=== PATIENT | male | born 1945 | race Caucasian/White ===

== ENCOUNTER 2017-11-22 19:03 | Emergency (ER) | payer SELFPAY | END 2017-11-22 23:45 | disposition left against medical advice (07) | LOC: E/R 19:03 | DX: Z53.21 Procedure and treatment not carried out due to patient leaving prior to being seen by health care provider (principal) ==

== ENCOUNTER 2017-11-23 07:55 | Inpatient (IN) | payer OTHER ==
[2017-11-23] MEDS: SODIUM CHLORIDE 0.9% 1L BAG IV* (08:32)
[2017-11-23 08:38] LABS: ADD MAN DIFF? NO
[2017-11-23 08:44] LABS: ADD UMIC YES; UR ASCORBIC ACID NEGATIVE (NEGATIVE); UR BILIRUBIN (Dip) NEGATIVE (NEGATIVE); UR BLOOD (Dip) NEGATIVE (NEGATIVE); UR CLARITY CLEAR (CLEAR); UR COLOR STRAW (YELLOW); UR GLUCOSE (Dip) NEGATIVE (NEGATIVE); UR KETONES (Dip) NEGATIVE (NEGATIVE); UR LEUKOCYTE ESTERASE (Dip) NEGATIVE Leu/ul (NEGATIVE); UR NITRITE (Dip) NEGATIVE (NEGATIVE); UR RBC 3 /HPF (0-5); UR SPECIFIC GRAVITY (Dip) 1.009 (1.003-1.030); UR TOTAL PROTEIN (Dip) 1+ mg/dl (NEGATIVE); UR UROBILINOGEN (Dip) 1+ mg/dL (NEGATIVE); UR WBC 0 /HPF (0-5)
[2017-11-23] MEDS: CEFTRIAXONE 1 GM/50 ML (PMX) 50 ML IVPB (08:46)
[2017-11-23] MEDS: IBUPROFEN 600 MG TAB PO (08:47)
[2017-11-23 08:49] LABS: WHITE BLOOD COUNT 1.7 10^3/ul (4.8-10.8)
[2017-11-23 08:49] LABS: ABNORMAL IP MESSAGE 1; HEMOGLOBIN 17.2 g/dl (14.0-18.0); LYMPHOCYTES # 0.2 10^3/ul (0.8-2.9); LYMPHOCYTES % 13.8 % (15.0-51.0); MEAN CORPUSCULAR HEMOGLOBIN 29.9 pg (29.0-33.0); MEAN CORPUSCULAR HGB CONC 33.1 g/dl (32.0-37.0); MEAN CORPUSCULAR VOLUME 90.4 fl (82.0-101.0); MEAN PLATELET VOLUME 10.1 fl (7.4-10.4); MONOCYTE # 0.2 10^3/ul (0.3-0.9); MONOCYTES % 10.2 % (0.0-11.0); NEUTROPHIL # 1.3 10^3/ul (1.6-7.5); NEUTROPHILS % 75.4 % (39.0-77.0); PLATELET COUNT 55 10^3/UL (140-415); POSITIVE DIFF @See below; RED BLOOD COUNT 5.75 10^6/ul (4.70-6.10); RED CELL DISTRIBUTION WIDTH 13.5 % (11.5-14.5)
[2017-11-23 09:05] LABS: ALANINE AMINOTRANSFERASE 65 IU/L (13-69); ALBUMIN 3.9 g/dl (3.3-4.9); ALBUMIN/GLOBULIN RATIO 1.11; ALKALINE PHOSPHATASE 105 IU/L (42-121); ANION GAP 13 (8-16); ASPARTATE AMINO TRANSFERASE 83 IU/L (15-46); BILIRUBIN,INDIRECT 0.4 mg/dl (0-1.1); BILIRUBIN,TOTAL 0.4 mg/dl (0.2-1.3); BLOOD UREA NITROGEN 23 mg/dl (7-20); CALCIUM 9.2 mg/dl (8.4-10.2); CARBON DIOXIDE 27 mmol/L (21-31); CHLORIDE 104 mmol/L (97-110); CREATININE 1.73 mg/dl (0.61-1.24); GLUCOSE 96 mg/dl (70-220); LIPASE 325 U/L (23-300); POTASSIUM 4.5 mmol/L (3.5-5.1); SODIUM 139 mmol/L (135-144); TOTAL PROTEIN 7.4 g/dl (6.1-8.1)
[2017-11-23 09:06] LABS: LACTIC ACID 1.1 mmol/L (0.5-2.0)
[2017-11-23 09:08] LABS: INR 1.32; PROTIME 16.6 Sec (11.9-14.9); PT RATIO 1.3
[2017-11-23 09:09] LABS: PARTIAL THROMBOPLASTIN TIME 39.4 Sec (25.0-35.0)
[2017-11-23 09:17] LABS: TROPONIN-I 0.036 ng/ml (0.000-0.120)
[2017-11-23] MEDS: AZITHROMYCIN 500MG/NS (PMX) 250 ML IVPB (09:28)
[2017-11-23 09:52] LABS: ANISOCYTOSIS 1+ (0-0); BAND NEUTROPHILS #M 0.2 10^3/ul (0.0-0.6); BAND NEUTROPHILS % (M) 13 % (0-4); GIANT THROMBO% (M) 1 % (0-0); LYMPHOCYTES % (M) 5 % (15-51); METAMYELOCYTES %M 2 % (0-0); MICROCYTOSIS 1+ (0-0); MONOCYTE #M 0.1 10^3/ul (0.3-0.9); MONOCYTES % (M) 6 % (0-11); PLATELET ESTIMATE DECREASED; REACTIVE LYMPHOCYTES% (M) 1 % (0-0); SEG NEUT #M 1.2 10^3/ul (1.6-7.5); SEGMENTED NEUTROPHILS (M) % 73 % (39-77); SMUDGE%M 24 % (0-0)
[2017-11-23] MEDS: SOD CHLORIDE 0.9% 1,000 ML IV ×3 (11:21→20:00)
[2017-11-23] MEDS ORDERED: NACL 0.9% 3 ML SYG IV (11:30)
[2017-11-23] MEDS ORDERED: DOCUSATE SODIUM 100 MG CAP PO (11:30)
[2017-11-23 13:21] LABS: HAAIG REFLEX REFLEX FILED
[2017-11-23 14:04] LABS: HEPATITIS B SURFACE ANTIGEN NEGATIVE (NEGATIVE)
[2017-11-23 14:22] LABS: HEPATITIS B CORE ANTIBODY NEGATIVE (NEGATIVE); HEPATITIS C VIRAL ANTIBODY NEGATIVE (NEGATIVE)
[2017-11-23] MEDS: ACETAMINOPHEN 325 MG TAB PO ×3 (17:00→23:33)
[2017-11-23] MEDS: ALBUTEROL/IPRATROPIUM (NEB) 3 ML AMP HHN ×2 (20:28→21:00)
[2017-11-23] MEDS: TAMSULOSIN (SR) 0.4 MG CAP PO (20:52)
[2017-11-23] MEDS: ATORVASTATIN 10 MG TAB PO (20:52)
[2017-11-23] MEDS: FAMOTIDINE 20 MG TAB PO (20:53)
[2017-11-23] MEDS: ONDANSETRON 4 MG INJ IV (23:34)
[2017-11-24] MEDS: ALBUTEROL/IPRATROPIUM (NEB) 3 ML AMP HHN ×7 (01:00→20:15)
[2017-11-24] MEDS: SOD CHLORIDE 0.9% 1,000 ML IV ×3 (01:20→23:40)
[2017-11-24] MEDS: ACETAMINOPHEN 325 MG TAB PO ×4 (05:48→22:42)
[2017-11-24 05:59] LABS: WHITE BLOOD COUNT 1.4 10^3/ul (4.8-10.8)
[2017-11-24 05:59] LABS: ABNORMAL IP MESSAGE 1; HEMATOCRIT 50.5 % (42.0-52.0); HEMOGLOBIN 16.7 g/dl (14.0-18.0); MEAN CORPUSCULAR HEMOGLOBIN 29.8 pg (29.0-33.0); MEAN CORPUSCULAR HGB CONC 33.1 g/dl (32.0-37.0); MEAN CORPUSCULAR VOLUME 90.2 fl (82.0-101.0); MEAN PLATELET VOLUME 10.5 fl (7.4-10.4); PLATELET COUNT 31 10^3/UL (140-415); POSITIVE DIFF @See below; RED CELL DISTRIBUTION WIDTH 13.6 % (11.5-14.5)
[2017-11-24 06:05] LABS: ADD MAN DIFF? YES
[2017-11-24 06:06] LABS: HEMOGLOBIN A1C 5.5 % (0-5.9)
[2017-11-24 06:41] LABS: LIPASE 358 U/L (23-300)
[2017-11-24 06:53] LABS: ALANINE AMINOTRANSFERASE 60 IU/L (13-69); ALKALINE PHOSPHATASE 90 IU/L (42-121); ANION GAP 14 (8-16); ASPARTATE AMINO TRANSFERASE 83 IU/L (15-46); BILIRUBIN,INDIRECT 0.3 mg/dl (0-1.1); BILIRUBIN,TOTAL 0.3 mg/dl (0.2-1.3); BLOOD UREA NITROGEN 21 mg/dl (7-20); CALCIUM 8.1 mg/dl (8.4-10.2); CARBON DIOXIDE 20 mmol/L (21-31); CHLORIDE 109 mmol/L (97-110); CHOL/HDL RATIO 2.1 RATIO; CHOLESTEROL 90 mg/dl (100-200); GLUCOSE 93 mg/dl (70-220); HDL CHOLESTEROL 42 mg/dl (31-75); LDL CHOLESTEROL,CALCULATED 32 mg/dl; MAGNESIUM 1.7 mg/dl (1.7-2.5); PHOSPHORUS 2.7 mg/dl (2.5-4.9); POTASSIUM 4.3 mmol/L (3.5-5.1); SODIUM 139 mmol/L (135-144); TRIGLYCERIDES 81 mg/dl (0-149)
[2017-11-24] MEDS: FAMOTIDINE 20 MG TAB PO ×2 (09:00→20:06)
[2017-11-24] MEDS: CEFTRIAXONE 1 GM/50 ML (PMX) 50 ML IVPB (09:02)
[2017-11-24] MEDS: FINASTERIDE 5 MG TAB PO (09:13)
[2017-11-24 09:28] LABS: ANISOCYTOSIS 2+ (0-0); BAND NEUTROPHILS #M 0.3 10^3/ul (0.0-0.6); BAND NEUTROPHILS % (M) 22 % (0-4); EOSINOPHILS % (M) 1 % (0-7); ERYTHROBLAST% (NRBC) (M) 1 % (0-0); GIANT THROMBO% (M) 2 % (0-0); LYMPHOCYTES % (M) 7 % (15-51); MONOCYTES % (M) 2 % (0-11); PLATELET ESTIMATE SIG DECREASED; POIKILOCYTOSIS 3+ (0-0); POLYCHROMASIA 3+ (0-0); RBC MORPHOLOGY COMMENT @See below; REACTIVE LYMPHOCYTES% (M) 1 % (0-0); SEG NEUT #M 0.9 10^3/ul (1.6-7.5); SEGMENTED NEUTROPHILS (M) % 67 % (39-77); SMUDGE%M 19 % (0-0); WBC MORPHOLOGY COMMENT @See below
[2017-11-24] MEDS: AZITHROMYCIN 500MG/NS (PMX) 250 ML IVPB (13:11)
[2017-11-24] MEDS: ATORVASTATIN 10 MG TAB PO (20:07)
[2017-11-24] MEDS: TAMSULOSIN (SR) 0.4 MG CAP PO (20:07)
[2017-11-24] MEDS: ONDANSETRON 4 MG INJ IV (21:11)
[2017-11-25] MEDS: ALBUTEROL/IPRATROPIUM (NEB) 3 ML AMP HHN ×6 (00:55→21:00)
[2017-11-25] MEDS: SOD CHLORIDE 0.9% 1,000 ML IV ×3 (04:00→19:35)
[2017-11-25] MEDS: ACETAMINOPHEN 325 MG TAB PO ×3 (05:36→18:12)
[2017-11-25 06:10] LABS: ADD MAN DIFF? NO
[2017-11-25 06:14] LABS: WHITE BLOOD COUNT 1.3 10^3/ul (4.8-10.8)
[2017-11-25 06:14] LABS: ABNORMAL IP MESSAGE 1; HEMATOCRIT 52.6 % (42.0-52.0); HEMOGLOBIN 17.6 g/dl (14.0-18.0); LYMPHOCYTES # 0.5 10^3/ul (0.8-2.9); LYMPHOCYTES % 39.2 % (15.0-51.0); MEAN CORPUSCULAR HEMOGLOBIN 30.2 pg (29.0-33.0); MEAN CORPUSCULAR HGB CONC 33.5 g/dl (32.0-37.0); MEAN CORPUSCULAR VOLUME 90.2 fl (82.0-101.0); MEAN PLATELET VOLUME 11.4 fl (7.4-10.4); MONOCYTE # 0.2 10^3/ul (0.3-0.9); NEUTROPHIL # 0.5 10^3/ul (1.6-7.5); NEUTROPHILS % 42.4 % (39.0-77.0); POSITIVE DIFF @See below; RED BLOOD COUNT 5.83 10^6/ul (4.70-6.10); RED CELL DISTRIBUTION WIDTH 13.7 % (11.5-14.5)
[2017-11-25 06:31] LABS: PLATELET COUNT 21 10^3/UL (140-415)
[2017-11-25 07:07] LABS: ALANINE AMINOTRANSFERASE 57 IU/L (13-69); ALBUMIN/GLOBULIN RATIO 1.15; ALKALINE PHOSPHATASE 99 IU/L (42-121); ANION GAP 13 (8-16); ASPARTATE AMINO TRANSFERASE 109 IU/L (15-46); BILIRUBIN,INDIRECT 0.4 mg/dl (0-1.1); BILIRUBIN,TOTAL 0.4 mg/dl (0.2-1.3); BLOOD UREA NITROGEN 15 mg/dl (7-20); CALCIUM 8.4 mg/dl (8.4-10.2); CARBON DIOXIDE 25 mmol/L (21-31); CHLORIDE 109 mmol/L (97-110); CREATININE 1.41 mg/dl (0.61-1.24); GLUCOSE 94 mg/dl (70-220); LIPASE 249 U/L (23-300); POTASSIUM 4.6 mmol/L (3.5-5.1); SODIUM 142 mmol/L (135-144); TOTAL PROTEIN 5.6 g/dl (6.1-8.1)
[2017-11-25] MEDS: CEFTRIAXONE 1 GM/50 ML (PMX) 50 ML IVPB (08:35)
[2017-11-25] MEDS: FINASTERIDE 5 MG TAB PO (08:39)
[2017-11-25] MEDS: FAMOTIDINE 20 MG TAB PO ×2 (08:39→20:49)
[2017-11-25] MEDS: ATORVASTATIN 10 MG TAB PO (09:39)
[2017-11-25] MEDS: AZITHROMYCIN 500MG/NS (PMX) 250 ML IVPB (09:40)
[2017-11-25] MEDS: ONDANSETRON 4 MG INJ IV ×2 (11:30→19:36)
[2017-11-25] MEDS: SALINE 0.65% 45 ML NAS SPRAY NASAL (11:44)
[2017-11-25 12:14] LABS: PROSTATE SPECIFIC ANTIGEN 2.5 ng/ml (0.0-4.0)
[2017-11-25] MEDS: TAMSULOSIN (SR) 0.4 MG CAP PO (20:49)
[2017-11-26] MEDS: SOD CHLORIDE 0.9% 1,000 ML IV ×4 (00:19→22:14)
[2017-11-26] MEDS: ALBUTEROL/IPRATROPIUM (NEB) 3 ML AMP HHN ×6 (01:00→20:16)
[2017-11-26] MEDS: ONDANSETRON 4 MG INJ IV ×2 (04:47→10:24)
[2017-11-26] MEDS: GUAIFENESIN/DM 5ML CUP PO ×2 (06:01→20:44)
[2017-11-26 06:19] LABS: ABNORMAL IP MESSAGE 1; HEMATOCRIT 54.9 % (42.0-52.0); HEMOGLOBIN 18.3 g/dl (14.0-18.0); MEAN CORPUSCULAR HEMOGLOBIN 30.1 pg (29.0-33.0); MEAN CORPUSCULAR HGB CONC 33.3 g/dl (32.0-37.0); MEAN CORPUSCULAR VOLUME 90.4 fl (82.0-101.0); MEAN PLATELET VOLUME 11.1 fl (7.4-10.4); NUCLEATED RED BLOOD CELLS% 0.7 /100WBC (0.0-0.0); POSITIVE DIFF @See below; RED BLOOD COUNT 6.07 10^6/ul (4.70-6.10); RED CELL DISTRIBUTION WIDTH 13.7 % (11.5-14.5)
[2017-11-26 06:48] LABS: ALANINE AMINOTRANSFERASE 86 IU/L (13-69); ALBUMIN/GLOBULIN RATIO 1.11; ALKALINE PHOSPHATASE 125 IU/L (42-121); ANION GAP 9 (8-16); ASPARTATE AMINO TRANSFERASE 174 IU/L (15-46); BILIRUBIN,INDIRECT 0.5 mg/dl (0-1.1); BILIRUBIN,TOTAL 0.5 mg/dl (0.2-1.3); BLOOD UREA NITROGEN 14 mg/dl (7-20); CALCIUM 8.8 mg/dl (8.4-10.2); CARBON DIOXIDE 27 mmol/L (21-31); CHLORIDE 108 mmol/L (97-110); CREATININE 1.57 mg/dl (0.61-1.24); GLUCOSE 88 mg/dl (70-220); SODIUM 139 mmol/L (135-144); TOTAL PROTEIN 5.7 g/dl (6.1-8.1)
[2017-11-26 07:07] LABS: ADD MAN DIFF? YES
[2017-11-26 07:09] LABS: PLATELET COUNT 15 10^3/UL (140-415)
[2017-11-26] MEDS: CEFTRIAXONE 1 GM/50 ML (PMX) 50 ML IVPB (08:47)
[2017-11-26] MEDS: FAMOTIDINE 20 MG TAB PO ×2 (08:48→20:41)
[2017-11-26] MEDS: FINASTERIDE 5 MG TAB PO (08:48)
[2017-11-26] MEDS: ATORVASTATIN 10 MG TAB PO (08:49)
[2017-11-26] MEDS: ACETAMINOPHEN 325 MG TAB PO (09:42)
[2017-11-26 09:47] LABS: ANISOCYTOSIS 1+ (0-0); BAND NEUTROPHILS #M 0.1 10^3/ul (0.0-0.6); BAND NEUTROPHILS % (M) 4 % (0-4); BURR CELLS 1+ (0-0); EOSINOPHILS % (M) 1 % (0-7); ERYTHROBLAST% (NRBC) (M) 4 % (0-0); LYMPHOCYTES #M 0.3 10^3/ul (0.8-2.9); LYMPHOCYTES % (M) 10 % (15-51); METAMYELOCYTES #M 0.1 10^3/ul (0.0-0.0); METAMYELOCYTES %M 4 % (0-0); MICROCYTOSIS 1+ (0-0); MONOCYTE #M 0.2 10^3/ul (0.3-0.9); MONOCYTES % (M) 7 % (0-11); MYELOCYTES % (M) 1 % (0-0); PLATELET ESTIMATE SIG DECREASED; POIKILOCYTOSIS 1+ (0-0); SEG NEUT #M 2.2 10^3/ul (1.6-7.5); SEGMENTED NEUTROPHILS (M) % 73 % (39-77); SMUDGE%M 55 % (0-0)
[2017-11-26] MEDS: AZITHROMYCIN 500MG/NS (PMX) 250 ML IVPB (10:23)
[2017-11-26 11:46] LABS: RETICULOCYTE COUNT # 0.067 X10^6 (0.020-0.110); RETICULOCYTE COUNT % 1.1 % (0.5-1.5)
[2017-11-26] MEDS ORDERED: LACTATED RINGER'S 500 ML IV (12:00)
[2017-11-26 12:04] LABS: FIBRIN SPLIT PRODUCT <10 ug/ml (<10)
[2017-11-26 12:08] LABS: LACTATE DEHYDROGENASE 1126 IU/L (313-618)
[2017-11-26 12:08] LABS: PLATELET COUNT 15 10^3/UL (140-415)
[2017-11-26 12:08] LABS: C-REACTIVE PROTEIN 1.3 mg/dl (0.0-0.9)
[2017-11-26 12:28] LABS: INR 1.01; PROTIME 13.4 Sec (11.9-14.9)
[2017-11-26 12:29] LABS: PARTIAL THROMBOPLASTIN TIME 47.7 Sec (25.0-35.0)
[2017-11-26 12:32] LABS: D-DIMER 1468.15 ng/ml (<460)
[2017-11-26] MEDS: LACTATED RINGER'S 500 ML IV (12:39)
[2017-11-26 12:56] LABS: ERYTHROCYTE SEDIMENTATION RATE 1 mm/Hr (0-20)
[2017-11-26 13:28] LABS: FOLATE > 20.0 ng/ml (2.8-20.0)
[2017-11-26] MEDS: SALINE 0.65% 45 ML NAS SPRAY NASAL (17:27)
[2017-11-26] MEDS: TAMSULOSIN (SR) 0.4 MG CAP PO (20:41)
[2017-11-27] MEDS: ALBUTEROL/IPRATROPIUM (NEB) 3 ML AMP HHN ×6 (01:52→20:39)
[2017-11-27 05:23] LABS: WHITE BLOOD COUNT 2.5 10^3/ul (4.8-10.8)
[2017-11-27 05:23] LABS: ABNORMAL IP MESSAGE 1; HEMATOCRIT 48.2 % (42.0-52.0); HEMOGLOBIN 16.2 g/dl (14.0-18.0); MEAN CORPUSCULAR HEMOGLOBIN 29.7 pg (29.0-33.0); MEAN CORPUSCULAR HGB CONC 33.6 g/dl (32.0-37.0); MEAN CORPUSCULAR VOLUME 88.3 fl (82.0-101.0); POSITIVE DIFF @See below; RED BLOOD COUNT 5.46 10^6/ul (4.70-6.10); RED CELL DISTRIBUTION WIDTH 13.6 % (11.5-14.5)
[2017-11-27 05:41] LABS: PLATELET COUNT 15 10^3/UL (140-415)
[2017-11-27 05:42] LABS: ADD MAN DIFF? YES
[2017-11-27] MEDS: SOD CHLORIDE 0.9% 1,000 ML IV ×2 (06:25→17:06)
[2017-11-27] MEDS: GUAIFENESIN/DM 5ML CUP PO ×3 (06:27→15:47)
[2017-11-27] MEDS: FINASTERIDE 5 MG TAB PO (08:22)
[2017-11-27] MEDS: CEFTRIAXONE 1 GM/50 ML (PMX) 50 ML IVPB (08:22)
[2017-11-27] MEDS: ATORVASTATIN 10 MG TAB PO (08:22)
[2017-11-27] MEDS: FAMOTIDINE 20 MG TAB PO ×2 (08:22→20:59)
[2017-11-27] MEDS: TAMSULOSIN (SR) 0.4 MG CAP PO ×2 (08:22→20:58)
[2017-11-27 10:38] LABS: ANISOCYTOSIS 1+ (0-0); BAND NEUTROPHILS #M 0.3 10^3/ul (0.0-0.6); BAND NEUTROPHILS % (M) 12 % (0-4); BURR CELLS 2+ (0-0); EOSINOPHILS % (M) 1 % (0-7); LYMPHOCYTES #M 0.3 10^3/ul (0.8-2.9); LYMPHOCYTES % (M) 14 % (15-51); METAMYELOCYTES #M 0.1 10^3/ul (0.0-0.0); METAMYELOCYTES %M 6 % (0-0); MICROCYTOSIS 1+ (0-0); MONOCYTE #M 0.4 10^3/ul (0.3-0.9); MONOCYTES % (M) 17 % (0-11); MYELOCYTES #M 0.2 10^3/ul (0.0-0.0); MYELOCYTES % (M) 10 % (0-0); OVALOCYTES 1+ (0-0); PLASMA CELLS #M 0.1 10^3/ul (0.0-0.0); PLASMAC%(M) 4 % (0); PLATELET ESTIMATE SIG DECREASED; POIKILOCYTOSIS 2+ (0-0); POLYCHROMASIA 1+ (0-0); REACTIVE LYMPHOCYTES #M 0.1 10^3/ul (0.0-0.0); REACTIVE LYMPHOCYTES% (M) 5 % (0-0); SEG NEUT #M 0.8 10^3/ul (1.6-7.5); SEGMENTED NEUTROPHILS (M) % 31 % (39-77); SMUDGE%M 105 % (0-0)
[2017-11-27] MEDS: AZITHROMYCIN 500MG/NS (PMX) 250 ML IVPB (10:43)
[2017-11-28] MEDS: ALBUTEROL/IPRATROPIUM (NEB) 3 ML AMP HHN ×6 (01:39→20:38)
[2017-11-28] MEDS: SOD CHLORIDE 0.9% 1,000 ML IV ×3 (02:14→20:22)
[2017-11-28 06:12] LABS: ABNORMAL IP MESSAGE 1; HEMATOCRIT 45.8 % (42.0-52.0); HEMOGLOBIN 15.5 g/dl (14.0-18.0); MEAN CORPUSCULAR HEMOGLOBIN 30.2 pg (29.0-33.0); MEAN CORPUSCULAR HGB CONC 33.8 g/dl (32.0-37.0); MEAN CORPUSCULAR VOLUME 89.3 fl (82.0-101.0); MEAN PLATELET VOLUME 11.2 fl (7.4-10.4); POSITIVE DIFF @See below; RED BLOOD COUNT 5.13 10^6/ul (4.70-6.10); RED CELL DISTRIBUTION WIDTH 13.4 % (11.5-14.5)
[2017-11-28 06:12] LABS: WHITE BLOOD COUNT 2.5 10^3/ul (4.8-10.8)
[2017-11-28] MEDS: ONDANSETRON 4 MG INJ IV (06:19)
[2017-11-28 06:26] LABS: ADD MAN DIFF? YES; PLATELET COUNT 24 10^3/UL (140-415)
[2017-11-28] MEDS: CEFTRIAXONE 1 GM/50 ML (PMX) 50 ML IVPB (08:00)
[2017-11-28] MEDS: ATORVASTATIN 10 MG TAB PO (08:24)
[2017-11-28] MEDS: FAMOTIDINE 20 MG TAB PO ×2 (08:24→20:22)
[2017-11-28] MEDS: FINASTERIDE 5 MG TAB PO (08:24)
[2017-11-28 08:31] LABS: ERYTHROCYTE SEDIMENTATION RATE 1 mm/Hr (0-20)
[2017-11-28 09:23] LABS: ANISOCYTOSIS 1+ (0-0); BAND NEUTROPHILS #M 0.2 10^3/ul (0.0-0.6); BAND NEUTROPHILS % (M) 10 % (0-4); EOSINOPHILS % (M) 1 % (0-7); ERYTHROBLAST% (NRBC) (M) 1 % (0-0); LYMPHOCYTES #M 0.5 10^3/ul (0.8-2.9); LYMPHOCYTES % (M) 23 % (15-51); METAMYELOCYTES %M 2 % (0-0); MICROCYTOSIS 1+ (0-0); MONOCYTE #M 0.3 10^3/ul (0.3-0.9); MONOCYTES % (M) 12 % (0-11); MYELOCYTES #M 0.1 10^3/ul (0.0-0.0); MYELOCYTES % (M) 6 % (0-0); PLATELET ESTIMATE SIG DECREASED; REACTIVE LYMPHOCYTES #M 0.2 10^3/ul (0.0-0.0); REACTIVE LYMPHOCYTES% (M) 10 % (0-0); SEG NEUT #M 0.9 10^3/ul (1.6-7.5); SEGMENTED NEUTROPHILS (M) % 36 % (39-77); SMUDGE%M 25 % (0-0)
[2017-11-28] MEDS: AZITHROMYCIN 500MG/NS (PMX) 250 ML IVPB (09:30)
[2017-11-28] MEDS ORDERED: LEVOFLOXACIN 750MG/D5W (PMX) 150 ML IVPB (14:30)
[2017-11-28 15:01] LABS: ANA SCREEN NEGATIVE (NEGATIVE)
[2017-11-28 16:17] LABS: TRANSFUSION CHARGE 1 1
[2017-11-28] MEDS: hydrALAzine 20 MG INJ IV (16:34)
[2017-11-28] MEDS: TAMSULOSIN (SR) 0.4 MG CAP PO (20:21)
[2017-11-28] MEDS: LEVOFLOXACIN 750MG/D5W (PMX) 150 ML IVPB (20:22)
[2017-11-28] MEDS: ACETAMINOPHEN 325 MG TAB PO (20:22)
[2017-11-28 20:43] LABS: ABNORMAL IP MESSAGE 1; HEMATOCRIT 45.6 % (42.0-52.0); MEAN CORPUSCULAR VOLUME 89.1 fl (82.0-101.0); MEAN PLATELET VOLUME 9.9 fl (7.4-10.4); POSITIVE DIFF @See below; RED BLOOD COUNT 5.12 10^6/ul (4.70-6.10)
[2017-11-28 20:52] LABS: HEMOGLOBIN 15.4 g/dl (14.0-18.0); MEAN CORPUSCULAR HEMOGLOBIN 30.1 pg (29.0-33.0); MEAN CORPUSCULAR HGB CONC 33.8 g/dl (32.0-37.0); PLATELET COUNT 72 10^3/UL (140-415); RED CELL DISTRIBUTION WIDTH 13.3 % (11.5-14.5)
[2017-11-28 20:59] LABS: ADD MAN DIFF? YES
[2017-11-28 22:10] LABS: LYMPHOCYTES #M 1.2 10^3/ul (0.8-2.9); LYMPHOCYTES % (M) 40 % (15-51); METAMYELOCYTES %M 2 % (0-0); MONOCYTE #M 0.5 10^3/ul (0.3-0.9); MONOCYTES % (M) 19 % (0-11); PLASMAC%(M) 2 % (0); PLATELET ESTIMATE DECREASED; REACTIVE LYMPHOCYTES #M 0.3 10^3/ul (0.0-0.0); REACTIVE LYMPHOCYTES% (M) 10 % (0-0); SEGMENTED NEUTROPHILS (M) % 27 % (39-77); SMUDGE%M 54 % (0-0)
[2017-11-28 23:17] LABS: PLATELET ANTIBODY - IGA NEGATIVE (NEGATIVE); PLATELET ANTIBODY - IGG NEGATIVE (NEGATIVE); PLATELET ANTIBODY - IGM NEGATIVE (NEGATIVE)
[2017-11-28] MEDS: PROMETHAZINE/CODEINE 5ML CUP PO (23:38)
[2017-11-29] MEDS: ALBUTEROL/IPRATROPIUM (NEB) 3 ML AMP HHN ×6 (01:00→20:56)
[2017-11-29] MEDS: SOD CHLORIDE 0.9% 1,000 ML IV ×3 (04:00→18:40)
[2017-11-29 06:11] LABS: WHITE BLOOD COUNT 2.4 10^3/ul (4.8-10.8)
[2017-11-29 06:11] LABS: ABNORMAL IP MESSAGE 1; HEMOGLOBIN 15.5 g/dl (14.0-18.0); MEAN CORPUSCULAR HEMOGLOBIN 30.4 pg (29.0-33.0); MEAN CORPUSCULAR HGB CONC 34.4 g/dl (32.0-37.0); MEAN CORPUSCULAR VOLUME 88.2 fl (82.0-101.0); PLATELET COUNT 67 10^3/UL (140-415); POSITIVE DIFF @See below; RED CELL DISTRIBUTION WIDTH 13.2 % (11.5-14.5)
[2017-11-29 06:19] LABS: ADD MAN DIFF? YES
[2017-11-29 08:23] LABS: ANISOCYTOSIS 1+ (0-0); BAND NEUTROPHILS % (M) 3 % (0-4); EOSINOPHILS % (M) 2 % (0-7); LYMPHOCYTES #M 0.8 10^3/ul (0.8-2.9); LYMPHOCYTES % (M) 34 % (15-51); METAMYELOCYTES %M 3 % (0-0); MICROCYTOSIS 1+ (0-0); MONOCYTE #M 0.4 10^3/ul (0.3-0.9); MONOCYTES % (M) 18 % (0-11); MYELOCYTES % (M) 3 % (0-0); PLATELET ESTIMATE SIG DECREASED; PROMYELOCYTES % (M) 1 % (0-0); REACTIVE LYMPHOCYTES #M 0.2 10^3/ul (0.0-0.0); REACTIVE LYMPHOCYTES% (M) 9 % (0-0); SEG NEUT #M 0.6 10^3/ul (1.6-7.5); SEGMENTED NEUTROPHILS (M) % 27 % (39-77); SMUDGE%M 13 % (0-0); SPHEROCYTES 1+ (0-0); TEAR DROP CELLS 1+ (0-0)
[2017-11-29] MEDS: ATORVASTATIN 10 MG TAB PO (09:00)
[2017-11-29] MEDS: FINASTERIDE 5 MG TAB PO (09:00)
[2017-11-29] MEDS: FAMOTIDINE 20 MG TAB PO ×2 (09:00→21:10)
[2017-11-29] MEDS: LIDOCAINE 1% (MPF) 5 ML VIAL (10:29)
[2017-11-29] MEDS: FENTAnyl 50 MCG/ML VIAL (10:30)
[2017-11-29] MEDS: MIDAZOLAM 1 MG/ML 2 ML INJ (10:30)
[2017-11-29 18:31] LABS: HAPTOGLOBIN <15 mg/dL (43-212); HOMOCYSTEINE - CARDIOVASCULAR 10.3 umol/L (<11.4)
[2017-11-29] MEDS: TAMSULOSIN (SR) 0.4 MG CAP PO (21:09)
[2017-11-30] MEDS: ALBUTEROL/IPRATROPIUM (NEB) 3 ML AMP HHN ×6 (00:55→20:50)
[2017-11-30] MEDS: SOD CHLORIDE 0.9% 1,000 ML IV ×3 (01:18→20:34)
[2017-11-30 06:39] LABS: WHITE BLOOD COUNT 2.9 10^3/ul (4.8-10.8)
[2017-11-30 06:39] LABS: ABNORMAL IP MESSAGE 1; HEMATOCRIT 46.4 % (42.0-52.0); HEMOGLOBIN 15.5 g/dl (14.0-18.0); MEAN CORPUSCULAR HEMOGLOBIN 29.5 pg (29.0-33.0); MEAN CORPUSCULAR HGB CONC 33.4 g/dl (32.0-37.0); MEAN CORPUSCULAR VOLUME 88.4 fl (82.0-101.0); MEAN PLATELET VOLUME 10.2 fl (7.4-10.4); PLATELET COUNT 87 10^3/UL (140-415); POSITIVE DIFF @See below; RED BLOOD COUNT 5.25 10^6/ul (4.70-6.10); RED CELL DISTRIBUTION WIDTH 13.2 % (11.5-14.5)
[2017-11-30 06:45] LABS: ADD MAN DIFF? YES
[2017-11-30 07:14] LABS: ANION GAP 10 (8-16); BLOOD UREA NITROGEN 10 mg/dl (7-20); CALCIUM 9.1 mg/dl (8.4-10.2); CARBON DIOXIDE 26 mmol/L (21-31); CHLORIDE 108 mmol/L (97-110); CREATININE 1.24 mg/dl (0.61-1.24); GLUCOSE 89 mg/dl (70-220); MAGNESIUM 1.6 mg/dl (1.7-2.5); POTASSIUM 3.9 mmol/L (3.5-5.1); SODIUM 140 mmol/L (135-144)
[2017-11-30 07:56] LABS: ANISOCYTOSIS 2+ (0-0); BAND NEUTROPHILS % (M) 1 % (0-4); BURR CELLS 1+ (0-0); EOSINOPHILS % (M) 2 % (0-7); ERYTHROBLAST% (NRBC) (M) 1 % (0-0); LYMPHOCYTES #M 0.8 10^3/ul (0.8-2.9); LYMPHOCYTES % (M) 30 % (15-51); MICROCYTOSIS 1+ (0-0); MONOCYTE #M 0.3 10^3/ul (0.3-0.9); MONOCYTES % (M) 12 % (0-11); MYELOCYTES % (M) 3 % (0-0); PLATELET ESTIMATE DECREASED; POLYCHROMASIA 3+ (0-0); PROMYELOCYTES % (M) 1 % (0-0); REACTIVE LYMPHOCYTES% (M) 2 % (0-0); SEG NEUT #M 1.4 10^3/ul (1.6-7.5); SEGMENTED NEUTROPHILS (M) % 49 % (39-77); SMUDGE%M 10 % (0-0); SPHEROCYTES 1+ (0-0); TEAR DROP CELLS 1+ (0-0)
[2017-11-30] MEDS: PROMETHAZINE/CODEINE 5ML CUP PO ×2 (08:32→08:35)
[2017-11-30] MEDS: FINASTERIDE 5 MG TAB PO (08:32)
[2017-11-30] MEDS: FAMOTIDINE 20 MG TAB PO ×2 (08:32→20:34)
[2017-11-30] MEDS: ATORVASTATIN 10 MG TAB PO (08:32)
[2017-11-30] MEDS: LEVOFLOXACIN 750MG/D5W (PMX) 150 ML IVPB (16:42)
[2017-11-30] MEDS: TAMSULOSIN (SR) 0.4 MG CAP PO (20:34)
[2017-11-30] MEDS: MAGNESIUM OXIDE 400 MG TAB PO (20:34)
[2017-12-01] MEDS: ALBUTEROL/IPRATROPIUM (NEB) 3 ML AMP HHN ×6 (01:00→19:18)
[2017-12-01] MEDS: SOD CHLORIDE 0.9% 1,000 ML IV ×4 (04:15→22:37)
[2017-12-01] MEDS: MAGNESIUM OXIDE 400 MG TAB PO ×2 (08:29→20:03)
[2017-12-01] MEDS: ATORVASTATIN 10 MG TAB PO (08:29)
[2017-12-01] MEDS: AMLODIPINE 5 MG TAB PO ×2 (08:30→12:40)
[2017-12-01] MEDS: FAMOTIDINE 20 MG TAB PO ×2 (08:30→20:03)
[2017-12-01] MEDS: FINASTERIDE 5 MG TAB PO (08:30)
[2017-12-01 08:43] LABS: ADD MAN DIFF? NO
[2017-12-01 08:51] LABS: ABNORMAL IP MESSAGE 1; HEMATOCRIT 47.4 % (42.0-52.0); MEAN CORPUSCULAR HEMOGLOBIN 29.8 pg (29.0-33.0); MEAN CORPUSCULAR HGB CONC 33.8 g/dl (32.0-37.0); MEAN CORPUSCULAR VOLUME 88.3 fl (82.0-101.0); MEAN PLATELET VOLUME 10.5 fl (7.4-10.4); PLATELET COUNT 112 10^3/UL (140-415); POSITIVE DIFF @See below; RED BLOOD COUNT 5.37 10^6/ul (4.70-6.10); RED CELL DISTRIBUTION WIDTH 13.1 % (11.5-14.5)
[2017-12-01 08:51] LABS: WHITE BLOOD COUNT 2.4 10^3/ul (4.8-10.8)
[2017-12-01] MEDS: SALINE 0.65% 45 ML NAS SPRAY NASAL (11:11)
[2017-12-01] MEDS: PROMETHAZINE/CODEINE 5ML CUP PO (11:11)
[2017-12-01] MEDS ORDERED: ACETYLCYSTEINE 20% 4 ML VIAL NEB (11:30)
[2017-12-01] MEDS: AZITHROMYCIN 500MG/NS (PMX) 250 ML IVPB (12:41)
[2017-12-01 13:17] LABS: ANISOCYTOSIS 1+ (0-0); BAND NEUTROPHILS % (M) 1 % (0-4); EOSINOPHILS % (M) 2 % (0-7); LYMPHOCYTES #M 0.4 10^3/ul (0.8-2.9); LYMPHOCYTES % (M) 19 % (15-51); MICROCYTOSIS 1+ (0-0); MONOCYTE #M 0.6 10^3/ul (0.3-0.9); MONOCYTES % (M) 25 % (0-11); PLATELET ESTIMATE DECREASED; REACTIVE LYMPHOCYTES #M 0.2 10^3/ul (0.0-0.0); REACTIVE LYMPHOCYTES% (M) 10 % (0-0); SEGMENTED NEUTROPHILS (M) % 43 % (39-77); SMUDGE%M 15 % (0-0)
[2017-12-01] MEDS: ACETYLCYSTEINE 20% 4 ML VIAL NEB (13:25)
[2017-12-01 13:54] LABS: ANION GAP 10 (8-16); BLOOD UREA NITROGEN 9 mg/dl (7-20); CALCIUM 9.2 mg/dl (8.4-10.2); CARBON DIOXIDE 22 mmol/L (21-31); CHLORIDE 111 mmol/L (97-110); CREATININE 1.18 mg/dl (0.61-1.24); GLUCOSE 109 mg/dl (70-220); MAGNESIUM 1.7 mg/dl (1.7-2.5); POTASSIUM 4.2 mmol/L (3.5-5.1); SODIUM 139 mmol/L (135-144)
[2017-12-01 14:14] LABS: IMMUNOGLOBULIN A 358 mg/dl (70-400); IMMUNOGLOBULIN G 1266 mg/dl (700-1600)
[2017-12-01 14:20] LABS: IMMUNOGLOBULIN M 74 mg/dl (40-230)
[2017-12-01 17:39] LABS: ADD UMIC YES; UR ASCORBIC ACID NEGATIVE (NEGATIVE); UR BILIRUBIN (Dip) NEGATIVE (NEGATIVE); UR BLOOD (Dip) NEGATIVE (NEGATIVE); UR CLARITY CLEAR (CLEAR); UR COLOR STRAW (YELLOW); UR GLUCOSE (Dip) NEGATIVE (NEGATIVE); UR KETONES (Dip) NEGATIVE (NEGATIVE); UR LEUKOCYTE ESTERASE (Dip) NEGATIVE Leu/ul (NEGATIVE); UR NITRITE (Dip) NEGATIVE (NEGATIVE); UR RBC 0 /HPF (0-5); UR SPECIFIC GRAVITY (Dip) 1.005 (1.003-1.030); UR TOTAL PROTEIN (Dip) 2+ mg/dl (NEGATIVE); UR UROBILINOGEN (Dip) NEGATIVE (NEGATIVE); UR WBC 0 /HPF (0-5)
[2017-12-01] MEDS: TAMSULOSIN (SR) 0.4 MG CAP PO (20:03)
[2017-12-02] MEDS: ALBUTEROL/IPRATROPIUM (NEB) 3 ML AMP HHN ×4 (01:00→13:00)
[2017-12-02 01:13] LABS: PROTEIN, TOTAL 6.4 g/dL (6.1-8.1)
[2017-12-02] MEDS: SOD CHLORIDE 0.9% 1,000 ML IV (06:45)
[2017-12-02 07:14] LABS: ADD MAN DIFF? NO
[2017-12-02 07:20] LABS: BASOPHILS % 0.3 % (0.0-2.0); EOSINOPHILS # 0.1 10^3/ul (0.0-0.5); EOSINOPHILS % 2.8 % (0.0-7.0); HEMATOCRIT 45.3 % (42.0-52.0); HEMOGLOBIN 15.2 g/dl (14.0-18.0); LYMPHOCYTES # 1.1 10^3/ul (0.8-2.9); LYMPHOCYTES % 29.9 % (15.0-51.0); MEAN CORPUSCULAR HEMOGLOBIN 29.8 pg (29.0-33.0); MEAN CORPUSCULAR HGB CONC 33.6 g/dl (32.0-37.0); MEAN CORPUSCULAR VOLUME 88.8 fl (82.0-101.0); MEAN PLATELET VOLUME 9.7 fl (7.4-10.4); MONOCYTE # 0.9 10^3/ul (0.3-0.9); MONOCYTES % 24.2 % (0.0-11.0); NEUTROPHIL # 1.5 10^3/ul (1.6-7.5); NEUTROPHILS % 41.4 % (39.0-77.0); PLATELET COUNT 145 10^3/UL (140-415); RED CELL DISTRIBUTION WIDTH 13.1 % (11.5-14.5)
[2017-12-02 07:20] LABS: WHITE BLOOD COUNT 3.6 10^3/ul (4.8-10.8)
[2017-12-02] MEDS ORDERED: AMLODIPINE 5 MG TAB PO (09:00)
[2017-12-02] MEDS: MAGNESIUM OXIDE 400 MG TAB PO (09:00)
[2017-12-02] MEDS: ATORVASTATIN 10 MG TAB PO (09:04)
[2017-12-02] MEDS: FINASTERIDE 5 MG TAB PO (09:04)
[2017-12-02] MEDS: AMLODIPINE 10 MG TAB PO (09:04)
[2017-12-02] MEDS: FAMOTIDINE 20 MG TAB PO (09:04)
[2017-12-02 23:12] LABS: ABNORMAL PROTEIN BAND 1 0.2 g/dL (NONE DETECTED); ALBUMIN 3.3 g/dL (3.8-4.8); ALPHA-1-GLOBULINS 0.3 g/dL (0.2-0.3); ALPHA-2-GLOBULINS 0.5 g/dL (0.5-0.9); BETA 2 GLOBULINS 0.4 g/dL (0.2-0.5); BETA GLOBULINS 0.4 g/dL (0.4-0.6); GAMMA GLOBULINS 1.4 g/dL (0.8-1.7)
[2017-12-04 16:41] LABS: INTRINSIC FACTOR AB NEGATIVE
== END 2017-12-02 14:54 | disposition home or self-care (01) | DRG 853 ==
LOC: E/R 07:55 → PP2 10:03
PROC: 30233R1 Transfusion of Nonautologous Platelets into Peripheral Vein, Percutaneous Approach (ICD-10-PCS; 2017-11-28)
PROC: 07DR3ZX Extraction of Iliac Bone Marrow, Percutaneous Approach, Diagnostic (ICD-10-PCS; principal; 2017-11-29)
PROC: 0QB33ZX Excision of Left Pelvic Bone, Percutaneous Approach, Diagnostic (ICD-10-PCS; 2017-11-29)
DX: A41.9 Sepsis, unspecified organism (principal); J18.9 Pneumonia, unspecified organism; N17.9 Acute kidney failure, unspecified; N13.8 Other obstructive and reflux uropathy; R65.20 Severe sepsis without septic shock; D69.6 Thrombocytopenia, unspecified; D72.819 Decreased white blood cell count, unspecified; E78.5 Hyperlipidemia, unspecified; I12.9 Hypertensive chronic kidney disease with stage 1 through stage 4 chronic kidney disease, or unspecified chronic kidney disease; N18.3 Chronic kidney disease, stage 3 (moderate); N40.1 Benign prostatic hyperplasia with lower urinary tract symptoms; R94.5 Abnormal results of liver function studies
CPT/HCPCS: 36415; 36430; 71045; 74176; 76700; 76775; 77012; 78226; 80048; 80053; 80061; 81001; 82607; 82746; 82784; 83010; 83036; 83090; 83605; 83615; 83690; 83735; 83921; 84100; 84153; 84154; 84155; 84165; 84443; 84484; 85025; 85045; 85049; 85362; 85378; 85384; 85610; 85651; 85670; 85730; 86022; 86038; 86140; 86320; 86340; 86644; 86704; 86709; 86803; 86850; 86900; 86901; 87040; 87086; 87340; 87400; 88305; 88313; 93005; 94640; 94664; 96374; 96375; 99285-25